=== PATIENT | female | born 1945 | race Caucasian/White ===

== ENCOUNTER 2016-10-28 10:35 | Inpatient (IN) | payer MEDICARE ==
[~2016-10-28] VITALS: Ht 167.6 cm; Wt 83.9 kg
[~2016-10-28 10:35] MED LIST: ASPIRIN EC81 MG PO; AUGMENTIN875TAB PO; BENAZEPRIL10 MG PO; BENAZEPRIL20 M1 PO; CETIRIZ/PSE1 TAB PO; CLONAZEPAM0.5 MG PO; DORZOLAMIDE2 % OS; FLONASE NASAL50 MCG; HUMULIN 70/30 SC; LASIX 20 MG TAB20 MG PO; LEVOTHYROXIN137 MCG PO; LIPITOR80 M1 PO; LORTAB 7.57.5 MG PO; MELOXICAM7.5 MG; MELOXICAM7.5 MG PO; METFORMIN HCL1000 MG PO; METFORMIN500 MG PO; METO50TA52 PO; NIFEDIPINE ER90 M1 PO; NIFEDIPINE90 MG PO; NITROSTAT0.4 MG SL; NOVOLOG MIX SC; PLAVIX75 MG PO; PRAVASTATIN SOD40 MG PO; PRILOSEC20 MG PO; PROCARDIA XL90 MG PO; PROTONIX40 M2 PO; TIZANIDINE HCL4 MG PO; TRAVATAN0.0041 OU
--- NOTE | 2016-10-28 10:37 | NUR ---
PT TO ROOM VIA WHEELCHAIR
[2016-10-28 11:09] LABS: HEMATOCRIT 41.7 % (37.0-47.0); HEMOGLOBIN 13.8 g/dl (12.0-16.0); IMMATURE GRANULOCYTES 0.3 % (0.0-1.0); MEAN CELL VOLUME 88.2 fL CALC (80.0-100.0); MEAN CORPUSCULAR HGB 29.2 pG CALC (26.0-32.0); MEAN CORPUSCULAR HGB CONC 33.1 g/L CALC (32.0-36.0); NEUT# 5.89 thou/uL (2.00-7.15); RED BLOOD COUNT 4.73 mill/uL (4.20-5.60); RED CELL DISTRI WIDTH 12.6 % (11.5-15.5)
[2016-10-28] MEDS ORDERED: METOPROL TAR25 MG PO ×2 (11:19→11:37)
[2016-10-28 11:26] LABS: ALBUMIN 4.3 g/dL (3.2-5.0); ALKALINE PHOSPHATASE 89 u/l (38-126); ANION GAP 18 (6-22 (CALC)); BILIRUBIN, TOTAL 0.5 mg/dL (0.0-1.4); BUN 15 mg/dL (8-23); BUN/CREATININE RATIO 18 (12-20 (CALC)); CARBON DIOXIDE 25 mmol/l (22-30); CHLORIDE 104 mmol/l (95-108); CREATININE 0.8 mg/dL (0.5-1.0); ETHYL ALCOHOL 0 mg/dl (0-30); GFR > 60 ML/MIN (>=60 (CALC)); GFR FOR AFR.AMER. > 60 ML/MIN (>=60 (CALC)); GLUCOSE 137 mg/dL (82-115); POTASSIUM 3.9 mmol/l (3.5-5.1); SGOT/AST 24 u/l (9-36); SGPT/ALT 29 u/l (11-66); SODIUM 143 mmol/l (137-146); TOTAL PROTEIN 7.7 g/dL (6.3-8.2)
--- NOTE | 2016-10-28 11:30 | NUR ---
PATIENT RESTING AWAITING LAB AND RADIOLOGY RESULTS PATIENT DENIES ANY PAIN OR DISCOMFORT AT THIS TIME
[2016-10-28 11:35] LABS: INTERNATIONAL NORMALIZED RATIO 1.3 RATIO (0.7-1.3); PROTHROMBIN TIME 14.7 SECONDS (9.0-12.5)
[2016-10-28 11:37] LABS: MYOGLOBIN 74 ng/mL (0 - 62)
[2016-10-28] MEDS ORDERED: PANTOPRAZOLE SO40 MG PO (11:39)
[2016-10-28] MEDS ORDERED: ULTRA OMEGA PO (11:40)
[2016-10-28] MEDS ORDERED: NOVOLIN 70/30 SC (11:42)
[2016-10-28] MEDS ORDERED: METFORMIN500 MG PO (11:44)
[2016-10-28] MEDS ORDERED: CRESTOR5 MG PO (11:44)
[2016-10-28] MEDS ORDERED: COQ-10100 M1 PO (11:46)
[2016-10-28] MEDS ORDERED: XARELTO10 MG PO (11:47)
--- NOTE | 2016-10-28 12:31 | NUR ---
PATIENT RESTING AWAITING LAB RESULTS PATIENT DENIES ANY PAIN OR DISCOMFORT AT THIS TIME [facility] REMAINS AT A 1.
--- NOTE | 2016-10-28 13:06 | NUR ---
REPORT CALLED TO MED SUR[facility]
--- NOTE | 2016-10-28 14:00 | NUR ---
PT ARRIVED FROM ER VIA WC ACCOMPANIED BY STAFF. IV SITE IS FREE FROM REDNESS OR EDEMA. TELE MONITOR IN PLACE.
--- NOTE | 2016-10-28 14:41 | NUR ---
ASSESSMENT IS COMPLETED: IV SITE IS FREE FROM REDNESS OR EDEMA. TELE MONITOR IN PLACE. CONTINUE TO OBSERVE AND MONITOR.
[2016-10-28 15:41] VITALS: BP 136/56
--- NOTE | 2016-10-28 17:10 | NUR ---
URINE COLLECTED AND SENT FOR TESTING
[2016-10-28 17:55] LABS: BARBITURATES NEGATIVE (NEGATIVE); COCAINE NEGATIVE (NEGATIVE); METHADONE NEGATIVE (NEGATIVE); OXCYCODONE NEGATIVE (NEGATIVE); TETRAHYDROCANNABIONOL NEGATIVE (NEGATIVE); TRICYLIC ANTIDEPRESSANTS NEGATIVE (NEGATIVE)
--- NOTE | 2016-10-28 19:53 | NUR ---
PT. C/O ARGUETA 02/18, MEDICATED WITH PRN TYLENOL, OFFERED COOL PACK, DECLINES AT THIS TIME. VS OBTAINED B/P 166/ WILL REASSESS. NEURO CHECK COMPLETED AND WNL. IV SITE PATENT AND SL. ASSESSMENT COMPLETED. PT. DENIES ANY FURTHER NEEDS. CALL LIGHT IS IN REACH. WILL CONTINUE TO MONITOR.
[2016-10-28 19:56] VITALS: BP 166/66
--- NOTE | 2016-10-28 21:00 | NUR ---
MANUAL B/P 170/78, MEDICATED WITH ORDERED LOPRESSOR, WILL CONTINUE TO MONITOR. PT. ATE 100% OF SNACK. DENIES NEEDS. ENCOURAGED TO CALL FOR ANY NEEDS. CALL LIGHT IS IN REACH.
--- NOTE | 2016-10-28 21:15 | NUR ---
DR. VALENCIA CALLED AND NOTIFIED OF PT'S PERSISTANT ARGUETA AFTER ADMINISTRATION OF TYLENOL, NEW ORDERS RECEIVED AND TO BE CARRIED OUT. ALSO NOTIFIED MD OF MANUAL B/P 170/78 AND OF ADMINISTRATION OF LOPRESSOR.
[2016-10-28 23:18] VITALS: BP 160/73
--- NOTE | 2016-10-28 23:18 | NUR ---
PT. RESTING IN BED WITH NO DISTRESS NOTED. AWAKENED FOR VS. COMMODE EMPTIED OF 200 ML OF CLEAR YELLOW URINE. PT. REPORTS ARGUETA IS NOW A 2/10. PO FLUIDS OFFERED. ENCOURAGED TO CALL FOR ANY NEEDS. CALL LIGHT IS IN REACH .WILL CONTINUE TO MONITOR.
[2016-10-29 03:51] VITALS: BP 166/72
--- NOTE | 2016-10-29 03:51 | NUR ---
PT. RESTING IN BED WITH EYES CLOSED, NO DISTRESS NOTED. AWAKENED FOR VS. PO FLUIDS OFFERED. PT. DENIES NEEDS/PAIN. CALL LIGHT IS IN REACH. WILL CONTINUE TO MONITOR.
[2016-10-29 05:52] LABS: HEMATOCRIT 39.9 % (37.0-47.0); IMMATURE GRANULOCYTES 0.3 % (0.0-1.0); MEAN CELL VOLUME 88.3 fL CALC (80.0-100.0); MEAN CORPUSCULAR HGB 28.8 pG CALC (26.0-32.0); MEAN CORPUSCULAR HGB CONC 32.6 g/L CALC (32.0-36.0); NEUT# 2.75 thou/uL (2.00-7.15); RED BLOOD COUNT 4.52 mill/uL (4.20-5.60); RED CELL DISTRI WIDTH 12.4 % (11.5-15.5)
[2016-10-29 06:16] LABS: ALBUMIN 3.6 g/dL (3.2-5.0); ALKALINE PHOSPHATASE 79 u/l (38-126); ANION GAP 15 (6-22 (CALC)); BILIRUBIN, TOTAL 0.6 mg/dL (0.0-1.4); BUN 17 mg/dL (8-23); BUN/CREATININE RATIO 19 (12-20 (CALC)); CARBON DIOXIDE 25 mmol/l (22-30); CHLORIDE 105 mmol/l (95-108); CREATININE 0.9 mg/dL (0.5-1.0); GFR > 60 ML/MIN (>=60 (CALC)); GFR FOR AFR.AMER. > 60 ML/MIN (>=60 (CALC)); GLUCOSE 148 mg/dL (82-115); POTASSIUM 4.3 mmol/l (3.5-5.1); SGOT/AST 18 u/l (9-36); SGPT/ALT 24 u/l (11-66); SODIUM 141 mmol/l (137-146); TOTAL PROTEIN 6.5 g/dL (6.3-8.2)
--- NOTE | 2016-10-29 07:00 | NUR ---
SHIFT CHANGE REPORT FROM [facility] PT SLEEPING AT THIS TIME, BREATHING EVEN AND NON-LABORED, NO SIGN DISCOMFORT, CALL BABIN IN REACH.
[2016-10-29 07:30] VITALS: BP 166/77
--- NOTE | 2016-10-29 09:04 | NUR ---
AWAKE ALERT AND ORIENTED SITTING UP AT BEDSIDE, ATE MEAL, NO C/O DISCOMFORT, FAMILY MEMBER IN ROOM, CALL BABIN IN REACH.
--- NOTE | 2016-10-29 11:37 | NUR ---
WENT OFF UNIT FOR MRI AND JUST RETURNIG TO ROOM AT THIS TIME, SETTLED IN BED, FAMILY AT BEDSIDE, CALL BABIN IN REACH.
[2016-10-29 12:30] VITALS: BP 156/71
[2016-10-29 16:00] VITALS: BP 155/74
--- NOTE | 2016-10-29 16:00 | NUR ---
PT C/O HEADACHE, TEARYEYED AT THIS TIME, MEDICATED, ANXIOUS TO GO HOME. PAIN REASSESSED IN TIMELY MANNER, PT STATES NO RELIEF, COLD COMPRESS APPLIED, REPORTS NO RELIEF, XANAX GIVEN, WILL CONTINUE TO MONITOR.
--- NOTE | 2016-10-29 17:55 | NUR ---
SITTING UP AT BEDSIDE HAVING MEAL, REPORTS NO RELIEF FROM HEADACHE BUT REFUSES TO ALLOW NURSE TO NOTIFY MD AT THIS TIME, WILL CONTINUE TO MONITOR.
--- NOTE | 2016-10-29 18:45 | NUR ---
DR VALENCIA NOTIFIED OF PERSISTENT HEADACHE, GAVE ORDERS, WILL CONTINUE TO MONITOR.
[2016-10-29 19:23] VITALS: BP 153/74
--- NOTE | 2016-10-29 20:01 | NUR ---
PT. RESTING IN BED WITH NO RESP DISTRESS NOTED. CONTINUES TO C/O ARGUETA 12/19, MEDICATED WITH ORDERED TORADOL, WILL REASSESS. ASSESSMENT AND NEURO CHECK COMPLETED. PO FLUIDS OFFERED. ENCOURAGED TO CALL FOR ANY NEEDS. CALL LIGHT IS IN REACH.
[2016-10-29 23:20] VITALS: BP 152/62
--- NOTE | 2016-10-29 23:42 | NUR ---
PT. RESTING IN BED ON LEFT SIDE WITH EYES CLOSED, NO DISTRESS NOTED. RESP EVEN AND UNLABORED. CALL LIGHT IS IN REACH.
[2016-10-30 03:38] VITALS: BP 169/55
--- NOTE | 2016-10-30 03:40 | NUR ---
PT. RESTING IN BED ON LEFT SIDE WITH EYES CLOSED, NO DISTRESS NOTED. AWAKENED FOR NEURO CHECK. DNEIES NEEDS AND VOICES NO CONCERNS. CALL LIGHT IS IN REACH. WILL CONTINUE TO MONITOR.
[2016-10-30 07:50] VITALS: BP 181/53
--- NOTE | 2016-10-30 07:50 | NUR ---
ASSESSMENT IS COMPLTED: IV SITE IS FREE FROM REDNESS OR EDEMA. TELE MONTIOR IN PLACE. FAMILY IN THE ROOM. CONTINUE TO OBSERVE AND MONITOR.
[2016-10-30 08:44] VITALS: BP 181/58
[2016-10-30] MEDS ORDERED: ALPRAZOLAM0.5 MG PO (09:21)
[2016-10-30] MEDS ORDERED: IBUPROFEN600 MG PO (09:21)
[2016-10-30] MEDS ORDERED: LORTAB5 PO (09:21)
--- NOTE | 2016-10-30 10:00 | NUR ---
IV SITE DISCONTINUED CATHETER INTACT. NO REDNESS OR EDEMA. TELE MONITOR OFF THE PT FAMILY REMAINS IN THE ROOM. DISCHARGE INSTRUCTIONS GIVEN TO PT AND FAMILY AND VERBALIZED UNDERSTANDING,
--- NOTE | 2016-10-30 10:15 | NUR ---
TELEMETRY LEADS REMOVED PER Linda ESPITIA LPN.
--- NOTE | 2016-10-30 10:16 | NUR ---
SMALL FLAT BRUISE NOTED BELOW IV INSERTION SITE, NO SX OF INFILTRATION. SHOWN TO PT AND REASSURANCE GIVEN
== END 2016-10-30 10:44 | disposition home or self-care (01) | DRG 948 ==
LOC: ENPENDDIS → ED 10:35 → ED-I 11:47 → ED 12:37 → MS2 12:38
PROVIDERS: Emergency Medicine; ADMIT Internal Medicine Geriatric Medicine; ATTEND Internal Medicine Geriatric Medicine
DX: R41.3 Other amnesia (principal); I48.0 Paroxysmal atrial fibrillation; I65.23 Occlusion and stenosis of bilateral carotid arteries; E11.9 Type 2 diabetes mellitus without complications; I10 Essential (primary) hypertension; E03.9 Hypothyroidism, unspecified; I25.10 Atherosclerotic heart disease of native coronary artery without angina pectoris; E78.5 Hyperlipidemia, unspecified; K21.9 Gastro-esophageal reflux disease without esophagitis; M19.90 Unspecified osteoarthritis, unspecified site; Z79.4 Long term (current) use of insulin; Z86.73 Personal history of transient ischemic attack (TIA), and cerebral infarction without residual deficits; Z79.01 Long term (current) use of anticoagulants
CPT/HCPCS: A9579; G0378

== ENCOUNTER 2016-11-02 16:29 | Emergency (ER) | payer MEDICARE ==
[~2016-11-02] VITALS: Ht 167.6 cm; Wt 90.0 kg
[~2016-11-02 16:29] MED LIST changes: +ALPRAZOLAM0.5 MG PO; +COQ-10100 M1 PO; +CRESTOR5 MG PO; +IBUPROFEN600 MG PO; +LORTAB5 PO; +METOPROL TAR25 MG PO; +NOVOLIN 70/30 SC; +PANTOPRAZOLE SO40 MG PO; +ULTRA OMEGA PO; +XARELTO10 MG PO
[2016-11-02 17:45] LABS: ALBUMIN 4.3 g/dL (3.2-5.0); BILIRUBIN, TOTAL 0.5 mg/dL (0.0-1.4); CALCIUM 10.2 mg/dL (8.4-10.2); CREATININE 1.1 mg/dL (0.5-1.0); POTASSIUM 4.2 mmol/l (3.5-5.1); TOTAL PROTEIN 7.3 g/dL (6.3-8.2)
[2016-11-02 18:02] LABS: HEMATOCRIT 46.4 % (37.0-47.0); HEMOGLOBIN 14.8 g/dl (12.0-16.0); IMMATURE GRANULOCYTES 0.3 % (0.0-1.0); MEAN CELL VOLUME 88.9 fL CALC (80.0-100.0); MEAN CORPUSCULAR HGB 28.4 pG CALC (26.0-32.0); MEAN CORPUSCULAR HGB CONC 31.9 g/L CALC (32.0-36.0); NEUT# 5.74 thou/uL (2.00-7.15); RED BLOOD COUNT 5.22 mill/uL (4.20-5.60); RED CELL DISTRI WIDTH 12.9 % (11.5-15.5)
[2016-11-02 18:54] VITALS: BP 154/63
== END 2016-11-02 18:55 | disposition short-term general hospital (02) ==
LOC: ED 16:29
PROVIDERS: Emergency Medicine
DX: I63.9 Cerebral infarction, unspecified (principal); R47.01 Aphasia; E11.9 Type 2 diabetes mellitus without complications; I10 Essential (primary) hypertension; I48.91 Unspecified atrial fibrillation; E03.9 Hypothyroidism, unspecified; R07.9 Chest pain, unspecified; Z86.73 Personal history of transient ischemic attack (TIA), and cerebral infarction without residual deficits

== ENCOUNTER 2018-08-07 14:17 | Inpatient (IN) | payer MEDICARE ==
[~2018-08-07] VITALS: Ht 167.6 cm; Wt 82.7 kg
[2018-08-07] VITALS (8 sets, daily range): BP systolic 92–119; BP diastolic 52–83
[~2018-08-07 14:17] MED LIST changes: +CARTIA XT180 MG PO; +GLIPIZIDE5 MG PO; +METOPROLOL SUCC50 MG PO; +NIFEDIPINE30 MG PO; +PEPCID20 MG PO; +PROPAFENONE150 M1 PO; +SERTRALINE50 MG PO; +SYNTHROID150 MCG PO; +TRESIBA FL100 UNIT/M SC
[2018-08-07 14:53] LABS: HEMATOCRIT 41.9 % (37.0-47.0); HEMOGLOBIN 13.6 g/dl (12.0-16.0); IMMATURE GRANULOCYTES 0.3 % (0.0-5.0); MEAN CELL VOLUME 86.6 fL CALC (80.0-100.0); MEAN CORPUSCULAR HGB 28.1 pG CALC (26.0-32.0); MEAN CORPUSCULAR HGB CONC 32.5 g/L CALC (32.0-36.0); NEUT# 5.48 thou/uL (2.00-7.15); RED BLOOD COUNT 4.84 mill/uL (4.20-5.60); RED CELL DISTRI WIDTH 14.2 % (11.5-15.5)
[2018-08-07] MEDS ORDERED: LEVOTHYROXIN100 MCG PO (15:05)
[2018-08-07 15:43] LABS: ALBUMIN 3.7 g/dL (3.2-5.0); BILIRUBIN, TOTAL 0.5 mg/dL (0.0-1.4); CREATININE 1.4 mg/dL (0.5-1.0); POTASSIUM 4.6 mmol/l (3.5-5.1); TOTAL PROTEIN 6.6 g/dL (6.3-8.2)
[2018-08-07 21:34] LABS: URINE BILIRUBIN - DIPSTICK NEGATIVE (NEGATIVE); URINE BLOOD DIPSTICK NEGATIVE (NEGATIVE); URINE COLOR YELLOW; URINE GLUCOSE - DIPSTICK NEGATIVE (NEGATIVE); URINE KETONE NEGATIVE (NEGATIVE); URINE NITRITE - DIPSTICK NEGATIVE (Negative); URINE PROTEIN - DIPSTICK NEGATIVE (NEG-TRACE); URINE SPECIFIC GRAVITY 1.025; URINE UROBILINOGEN - DIPSTICK 0.2 E.U./dL (0.2)
[2018-08-07 21:40] LABS: URINE LEUK ESTERASE SMALL (NEGATIVE)
[2018-08-07 21:59] LABS: URINE SQUAMOUS EPITHELIAL CELL FEW EPI/hpf (0-FEW)
[2018-08-08] VITALS: BP 113/74
[2018-08-08 02:00] VITALS: BP 138/76
[2018-08-08 04:00] VITALS: BP 135/85
[2018-08-08 06:00] VITALS: BP 130/80
[2018-08-08 06:30] LABS: HEMATOCRIT 38.9 % (37.0-47.0); HEMOGLOBIN 12.5 g/dl (12.0-16.0); IMMATURE GRANULOCYTES 0.3 % (0.0-5.0); MEAN CELL VOLUME 87.4 fL CALC (80.0-100.0); MEAN CORPUSCULAR HGB 28.1 pG CALC (26.0-32.0); MEAN CORPUSCULAR HGB CONC 32.1 g/L CALC (32.0-36.0); NEUT# 3.53 thou/uL (2.00-7.15); RED BLOOD COUNT 4.45 mill/uL (4.20-5.60); RED CELL DISTRI WIDTH 14.1 % (11.5-15.5)
[2018-08-08 06:42] LABS: ALBUMIN 4.1 g/dL (3.2-5.0); ALKALINE PHOSPHATASE 85 u/l (38-126); ANION GAP 14 (6-22 (CALC)); BILIRUBIN, TOTAL 0.4 mg/dL (0.0-1.4); BUN 19 mg/dL (8-23); BUN/CREATININE RATIO 21 (12-20 (CALC)); CARBON DIOXIDE 21 mmol/l (22-30); CHLORIDE 111 mmol/l (95-108); CREATININE 0.9 mg/dL (0.5-1.0); GFR > 60 ML/MIN (>=60 (CALC)); GFR FOR AFR.AMER. > 60 ML/MIN (>=60 (CALC)); SGOT/AST 18 u/l (9-36); SODIUM 142 mmol/l (137-146); TOTAL PROTEIN 6.9 g/dL (6.3-8.2)
[2018-08-08 08:00] VITALS: BP 102/65
[2018-08-08 10:05] LABS: TSH, 3RD GENERATION 3.25 uIU/mL (0.47 - 4.68)
[2018-08-08 11:21] VITALS: BP 117/67
[2018-08-08 16:57] LABS: HEMATOCRIT 42.1 % (37.0-47.0); IMMATURE GRANULOCYTES 0.3 % (0.0-5.0); MEAN CELL VOLUME 90.1 fL CALC (80.0-100.0); MEAN CORPUSCULAR HGB 27.8 pG CALC (26.0-32.0); MEAN CORPUSCULAR HGB CONC 30.9 g/L CALC (32.0-36.0); NEUT# 4.31 thou/uL (2.00-7.15); RED BLOOD COUNT 4.67 mill/uL (4.20-5.60)
== END 2018-08-08 17:35 | disposition short-term general hospital (02) | DRG 310 ==
LOC: ED 14:17 → ED-I 16:10 → ICU 16:21 → ED 16:21 → ICU 08-08 08:28
PROVIDERS: Emergency Medicine; ADMIT Internal Medicine Geriatric Medicine; ATTEND Internal Medicine Geriatric Medicine
DX: I48.2 Chronic atrial fibrillation (principal); I10 Essential (primary) hypertension; I25.10 Atherosclerotic heart disease of native coronary artery without angina pectoris; E03.9 Hypothyroidism, unspecified; E11.9 Type 2 diabetes mellitus without complications; E78.5 Hyperlipidemia, unspecified; I95.9 Hypotension, unspecified; F41.9 Anxiety disorder, unspecified; I69.911 Memory deficit following unspecified cerebrovascular disease
CPT/HCPCS: J0153; J1160

== ENCOUNTER 2021-04-14 13:01 | Observation (INO) | payer MEDICARE ==
[~2021-04-14] VITALS: Ht 167.6 cm; Wt 76.0 kg
[~2021-04-14 13:01] MED LIST changes: +LEVOTHYROXIN100 MCG PO
[2021-04-14] MEDS ORDERED: LEVOTHYROXIN100 MCG PO (13:23)
[2021-04-14] MEDS ORDERED: METFORMIN500 M2 PO (13:36)
[2021-04-14] MEDS ORDERED: NIFEDIPINE60 MG PO (13:37)
[2021-04-14 14:21] LABS: HEMATOCRIT 34.8 % (37.0-47.0); HEMOGLOBIN 11.1 g/dl (12.0-16.0); IMMATURE GRANULOCYTES 0.1 % (0.0-5.0); MEAN CELL VOLUME 84.1 fL CALC (80.0-100.0); MEAN CORPUSCULAR HGB 26.8 pG CALC (26.0-32.0); MEAN CORPUSCULAR HGB CONC 31.9 g/dL CAL (32.0-36.0); NEUT# 7.99 thou/uL (2.00-7.15); RED BLOOD COUNT 4.14 mill/uL (4.20-5.60); RED CELL DISTRI WIDTH 13.6 % (11.5-15.5)
[2021-04-14 14:37] LABS: ALBUMIN 4.2 g/dL (3.2-5.0); ALKALINE PHOSPHATASE 107 u/l (38-126); ANION GAP 14 (6-22 (CALC)); BUN 18 mg/dL (8-23); BUN/CREATININE RATIO 17 (12-20 (CALC)); CARBON DIOXIDE 21 mmol/l (22-30); CHLORIDE 107 mmol/l (95-108); GFR 54 ML/MIN (>=60 (CALC)); GFR FOR AFR.AMER. > 60 ML/MIN (>=60 (CALC)); POTASSIUM 3.9 mmol/l (3.5-5.1); SGOT/AST 19 u/l (9-36); SODIUM 137 mmol/l (137-146); TOTAL PROTEIN 7.4 g/dL (6.3-8.2)
[2021-04-14 15:37] LABS: BILIRUBIN, TOTAL 0.6 mg/dL (0.0-1.4)
[2021-04-14 21:00] VITALS: BP 171/75
[2021-04-14 21:44] LABS: URINE BILIRUBIN - DIPSTICK NEGATIVE (NEGATIVE); URINE BLOOD DIPSTICK SMALL (NEGATIVE); URINE COLOR YELLOW; URINE GLUCOSE - DIPSTICK NEGATIVE (NEGATIVE); URINE KETONE NEGATIVE (NEGATIVE); URINE LEUK ESTERASE NEGATIVE (NEGATIVE); URINE PROTEIN - DIPSTICK 100 mg/dL (NEG-TRACE); URINE SPECIFIC GRAVITY 1.025; URINE UROBILINOGEN - DIPSTICK 0.2 E.U./dL (0.2)
[2021-04-14 21:45] LABS: URINE NITRITE - DIPSTICK NEGATIVE (Negative)
[2021-04-14 21:50] LABS: URINE SQUAMOUS EPITHELIAL CELL FEW EPI/hpf (0-FEW); URINE WBC 0-2 WBC/hpf (0-5)
[2021-04-14 23:33] VITALS: BP 174/71
[2021-04-15 04:14] VITALS: BP 161/74
[2021-04-15 05:59] LABS: HEMATOCRIT 34.5 % (37.0-47.0); HEMOGLOBIN 10.8 g/dl (12.0-16.0); MEAN CORPUSCULAR HGB 26.6 pG CALC (26.0-32.0); MEAN CORPUSCULAR HGB CONC 31.3 g/dL CAL (32.0-36.0); RED BLOOD COUNT 4.06 mill/uL (4.20-5.60); RED CELL DISTRI WIDTH 13.9 % (11.5-15.5)
[2021-04-15 06:16] LABS: ANION GAP 15 (6-22 (CALC)); BUN 13 mg/dL (8-23); BUN/CREATININE RATIO 16 (12-20 (CALC)); CALCULATED LDLCHOLESTEROL 68 mg/dL (62-129 (CALC)); CARBON DIOXIDE 20 mmol/l (22-30); CHLORIDE 108 mmol/l (95-108); CHOLESTEROL HDL RATIO 3.1 (<4.4 (CALC)); CREATININE 0.8 mg/dL (0.5-1.0); GFR > 60 ML/MIN (>=60 (CALC)); GFR FOR AFR.AMER. > 60 ML/MIN (>=60 (CALC)); HDL CHOLESTEROL 46 mg/dL (>=40); MAGNESIUM 1.6 mg/dL (1.6-2.3); POTASSIUM 3.7 mmol/l (3.5-5.1); SODIUM 139 mmol/l (137-146); TOTAL CHOLESTEROL 141 mg/dl (0-199); TOTAL TRIGLYCERIDES 136 mg/dl (30-149); VLDL CHOLESTROL 27 mg/dl (0-48 (CALC))
[2021-04-15 07:00] VITALS: BP 158/67
[2021-04-15 11:21] VITALS: BP 151/58
== END 2021-04-15 12:55 | disposition home or self-care (01) ==
LOC: ED 13:01 → ED-I 13:44 → ED 17:59 → MS2 18:00
PROVIDERS: Family Medicine; Nurse Practitioner; ADMIT Internal Medicine; ATTEND Internal Medicine
DX: G45.9 Transient cerebral ischemic attack, unspecified (principal); R55 Syncope and collapse; R50.9 Fever, unspecified; I11.0 Hypertensive heart disease with heart failure; I50.9 Heart failure, unspecified; E11.9 Type 2 diabetes mellitus without complications; I48.91 Unspecified atrial fibrillation; I69.998 Other sequelae following unspecified cerebrovascular disease; H53.9 Unspecified visual disturbance; E03.9 Hypothyroidism, unspecified; E78.5 Hyperlipidemia, unspecified; H40.9 Unspecified glaucoma; M47.812 Spondylosis without myelopathy or radiculopathy, cervical region; F41.9 Anxiety disorder, unspecified; F32.9 Major depressive disorder, single episode, unspecified; Z79.01 Long term (current) use of anticoagulants; Z79.4 Long term (current) use of insulin; Z79.84 Long term (current) use of oral hypoglycemic drugs; Z20.822 Contact with and (suspected) exposure to COVID-19
CPT/HCPCS: Q9967

== ENCOUNTER 2022-08-28 16:06 | Emergency (ER) | payer MEDICARE ==
[~2022-08-28] VITALS: Ht 167.6 cm; Wt 84.2 kg
[~2022-08-28 16:06] MED LIST changes: +METFORMIN500 M2 PO; +NIFEDIPINE60 MG PO
[2022-08-28 19:31] VITALS: BP 178/75
== END 2022-08-28 20:06 | disposition home or self-care (01) ==
LOC: ED 16:06
DX: M25.531 Pain in right wrist (principal); E11.9 Type 2 diabetes mellitus without complications; I10 Essential (primary) hypertension; I48.91 Unspecified atrial fibrillation; F32.A Depression, unspecified; Z86.73 Personal history of transient ischemic attack (TIA), and cerebral infarction without residual deficits; Z79.84 Long term (current) use of oral hypoglycemic drugs; Z79.4 Long term (current) use of insulin

== ENCOUNTER 2022-12-26 23:18 | Emergency (ER) | payer MEDICARE ==
[2022-12-26 23:25] VITALS: BP 144/68
[2022-12-26 23:30] VITALS: BP 168/128
[2022-12-26 23:38] VITALS: BP 142/122
[2022-12-26 23:46] LABS: BASO% 0.3 % (0-3); EOS% 2.4 % (0-8); IMMATURE GRANULOCYTES 0.2 % (0.0-5.0); LYMPH% 16.3 % (15-41); MEAN CELL VOLUME 86.7 fL CALC (80.0-100.0); MEAN CORPUSCULAR HGB CONC 31.1 g/dL CAL (32.0-36.0); MONO% 11.2 % (2-13); NEUT# 6.15 thou/uL (2.00-7.15); NEUT% 69.6 % (42-76); RED BLOOD COUNT 4.82 mill/uL (4.20-5.60); RED CELL DISTRI WIDTH 15.5 % (11.5-15.5)
[2022-12-26 23:48] LABS: HEMATOCRIT 41.8 % (37.0-47.0)
[2022-12-27] VITALS: BP 131/86
[2022-12-27] LABS: CREATININE 1.1 mg/dL (0.5-1.0); POTASSIUM 4.2 mmol/l (3.5-5.1)
[2022-12-27 01:07] VITALS: BP 131/86
== END 2022-12-27 01:08 | disposition home or self-care (01) ==
LOC: ED 23:18
PROVIDERS: Family Medicine
DX: E11.649 Type 2 diabetes mellitus with hypoglycemia without coma (principal); T38.3X5A Adverse effect of insulin and oral hypoglycemic [antidiabetic] drugs, initial encounter; I10 Essential (primary) hypertension; I48.91 Unspecified atrial fibrillation; E03.9 Hypothyroidism, unspecified; F32.A Depression, unspecified; Z86.73 Personal history of transient ischemic attack (TIA), and cerebral infarction without residual deficits; Z79.4 Long term (current) use of insulin; Z79.84 Long term (current) use of oral hypoglycemic drugs